=== PATIENT | female | born 1990 | race Caucasian/White ===

== ENCOUNTER 2025-01-25 23:33 | Emergency (ER) | payer BC, SELFPAY ==
[2025-01-25 23:43] VITALS: BMI 32.2
[2025-01-25 23:48] VITALS: BP 124/68
[2025-01-26] VITALS: BP 114/57
[2025-01-26 00:09] LABS: % Basophils 0.2 % (0-2); % Eosinophils 1.9 % (0-6); % Immature Granulocytes 0.3 % (0-0.5); % Lymphocytes 9.5 % (20.5-51.1); % Monocytes 4.4 % (1.7-9.3); % Neutrophils 83.7 % (42.2-75.2); Absolute Eosinophils 0.2 10^3/uL (0-0.7); Absolute Lymphocytes 0.9 10^3/uL (1.2-3.4); Absolute Monocytes 0.4 10^3/uL (0.1-0.6); Hematocrit 24.7 % (37.0-47.0); Hemoglobin 8.5 g/dL (12.0-16.0); Mean Corp Hgb Conc. 34.4 g/dL (33.0-37.0); Mean Corpuscular Hgb 30.6 pg (27.0-31.0); Mean Corpuscular Volume 88.8 fL (81.0-99.0); Mean Platelet Volume 8.5 fL (7.4-10.4); Nucleated Red Blood Cells % 0 %; Platelet Count 308 10^3/uL (130-400); Red Blood Cell Count 2.78 10^6/uL (4.20-5.40); Red Cell Dist. Width 12.5 % (11.5-14.5); White Blood Cell Count 9.6 10^3/uL (4.8-10.8)
[2025-01-26] MEDS: NSS 1000 IV (00:17)
[2025-01-26 00:19] LABS: ALT (SGPT) 14 U/L (0-35); AST (SGOT) 14 U/L (14-36); Albumin 3.1 g/dl (3.5-5.0); Alkaline Phosphatase 110 U/L (38-126); Blood Urea Nitrogen 9 mg/dl (7-17); Calcium 8.5 mg/dl (8.4-10.2); Carbon Dioxide 22 mmol/L (22-30); Chloride 111 mmol/L (98-107); Estimated Creatinine Clearance > 125 ml/min; Glucose 179 mg/dl (70-99); Potassium 3.7 mmol/L (3.5-5.1); Sodium 139 mmol/L (135-145); Total Bilirubin 0.5 mg/dl (0.2-1.3); Total Protein 5.6 g/dl (6.3-8.2); eGFR > 60.00
--- NOTE | 2025-01-26 00:33 | ED.GENMED ---
History of Present Illness
General
Chief Complaint: Vaginal Bleeding
Time Seen by Provider: 01/25/25 23:34
History of Present Illness
History of Present Illness:
Patient is a 34-year-old woman G1, P2 who delivered twins 3 weeks ago presenting to the emergency department vaginal bleeding. Patient states that she had a normal . She had a vaginal delivery that was complicated by hemorrhage
requiring Pitocin but no blood transfusion. She did not require extended stay or ICU. She states that her bleeding was brown up until 2 days ago when it turned bright red. She was using a pad every 3 hours. Today she had abdominal cramping
throughout the day. She called her OB who told her to come to the emergency department for evaluation. When she got up she got lightheaded and then had significant vaginal bleeding with clots so 911 was called and patient came to the emergency
department. Since she has been here she states that the cramping has slightly improved. She is not currently lightheaded dizzy. She does feel that she is having ongoing vaginal bleeding. She is not on any blood thinners. No sexual intercourse.
No traumatic injuries.
Phy Exam
Physical Exam
Physical Exam:
GENERAL: in no acute distress
HEENT: normocephalic, extraocular movements intact, moist oral mucosa
NECK: normal inspection
RESPIRATORY: no respiratory distress, clear to auscultation bilaterally
CARDIOVASCULAR: regular rhythm tachycardic rate
ABDOMEN/: soft, non-distended, non-tender to palpation, no rebound or guarding
exam chaperoned by RN, large 5x2cm clot in the vaginal vault with slow ooze from the os
EXTREMITIES: non-tender, no edema/swelling
NEUROLOGIC: awake and alert, moves all extremities
SKIN: warm
Course
Orders/Labs/Results
Orders:
Orders
01/25/25 23:42
Complete Blood Count/With Diff Urgent
Comprehensive Metabolic Panel Urgent
US Pelvis Only (non-obstetric) Urgent
Reason For Exam: vag bleeding/sp delivery 01/06
01/25/25 23:44
Type+Screen Urgent
01/26/25 00:07
0.9% Sodium Chloride 1000 ml [Nss] 1,000 ml IV BOLUS
Abnormal Lab Results
01/26/25
00:00
RBC 2.78 L 10^6/uL
(4.20-5.40)
Hgb 8.5 L g/dL
(12.0-16.0)
Hct 24.7 L %
(37.0-47.0)
Absolute Neuts (auto) 8.0 H 10^3/uL
(1.4-6.5)
Absolute Lymphs (auto) 0.9 L 10^3/uL
(1.2-3.4)
Neutrophils % 83.7 H %
(42.2-75.2)
Lymphocytes % 9.5 L %
(20.5-51.1)
Chloride 111 H mmol/L
(98-107)
Glucose 179 H mg/dl
(70-99)
Total Protein 5.6 L g/dl
(6.3-8.2)
Albumin 3.1 L g/dl
(3.5-5.0)
01/26/25 00:00
01/26/25 00:00
Vital Signs
Initial and Last Documented VS:
Initial Vital Signs
Temp
99.2 F
01/25/25 23:47
Last Documented Vital Signs
Temp Pulse Resp BP Pulse Ox
99.2 F 95 16 113/73 98
01/25/25 23:47 01/26/25 02:50 01/26/25 02:50 01/26/25 02:14 01/26/25 02:50
MDM/Problems Addressed
Differential Diagnosis Includes:
Patient is a 34-year-old woman who recently delivered twins 3 weeks ago vaginally with hemorrhage that required Pitocin but no transfusion presenting to the emergency department with vaginal bleeding. On arrival blood pressure was in the
120s and exam did show a large clot in the vault with a slow ooze. Concern for abnormal uterine bleeding versus placenta scab falling off. Consider endometritis though patient afebrile with no discharge. Will check blood work and ultrasound. Will
give IVF given lightheadedness/active bleeding. Discussed with on-call will be Dr. Messina who is in agreement with workup.
*Critical Care Note
Total Time (30-74mins, 75-104mins- exclusive of procedures): Not Applicable
Update Note
Update Note:
Hemoglobin is 8.5. Patient is unclear what it was upon discharge. Given ongoing bleeding her hemoglobin of 8.5 we did discuss transfer to [facility] for observation in her OB team. She did opt for transfer. I did discuss with [facility]
OB who accepted patient to their OB triage. Case discussed with provider [place].
Transport team arrived and patient transferred in stable condition. Ultrasound read pending at this time.
ED Attending Note
-
Portions of this chart may have been created with voice recognition software.� Occasional wrong word or��sound alike� substitutions may have occurred due to the inherent limitations of voice recognition software.
Discharge Plan
Departure
Patient Disposition: Acute Care Hospital
Date of Disposition: 01/26/25
Time of Disposition: 01:02
Discharge Problem:
bleeding
Prescriptions:
No Action
cetirizine [Zyrtec] 10 mg Tablet
10 mg PO DAILY
ferrous sulfate [iron] 325 mg (65 mg iron) Tablet
325 mg PO DAILY
PNV cmb#95-ferrous fumarate-FA [ Multivitamins] 28 mg iron- 800 mcg Tablet
1 tab PO DAILY
Referrals:
NONE,* [Family Provider, Internal Medicine]
Hospital Transfer
Other hospital: [facility]
I certify that the patient requires transfer: Yes
Discussed case with accepting physician: [place]
Reason for transfer: other
Interventions
Interventions:
*Risk Screen - Suicide Last Done: 01/25/25 23:35
*General Assessment Last Done: 01/25/25 23:35
*Neglect/Abuse Screening Last Done: 01/25/25 23:35
*ED- Fall Risk Assessment Last Done: 01/25/25 23:43
*Nursing Disposition Last Done: 01/26/25 03:02
ED-Female Genitourinary Assessment Last Done: 01/26/25 00:21
Discharge Date and Time
Discharge Date/Time: 01/26/25 03:02
Print Language: CAPE [place]DE[place]
[2025-01-26 01:00] VITALS: BP 118/65
[2025-01-26 02:14] VITALS: BP 113/73
--- NOTE | 2025-01-26 02:48 | EDRN ---
Report called to Jimena at [facility] at [phone]
== END 2025-01-26 03:02 | disposition short-term general hospital (02) ==
LOC: EMR 23:33
PROVIDERS: EMERGENCY PHYSICIAN Student in an Organized Health Care Education/Training Program
DX: O72.2 Delayed and secondary postpartum hemorrhage (principal); O90.89 Other complications of the puerperium, not elsewhere classified; R42 Dizziness and giddiness; R79.89 Other specified abnormal findings of blood chemistry
CPT/HCPCS: 99285; 96360; 76856; 80053; 85025; 86850; 86900; 86901